=== PATIENT | male | born 1960 | race Caucasian/White ===

== ENCOUNTER 2023-11-08 12:03 | Emergency (ER) | payer OTHER ==
[~2023-11-08] VITALS: Ht 180.3 cm; Wt 95.3 kg
[2023-11-08 12:12] VITALS: BP 112/48; PULSE 66; RESP 16; TEMP 98.8; O2SAT 98
[2023-11-08 13:14] LABS: ANION GAP 9.3 (8-16); CALCIUM 7.7 mg/dL (8.5-10.1); CARBON DIOXIDE 26.3 mmol/L (21-32); CREATININE 0.8 mg/dL (0.6-1.3); POTASSIUM 3.6 mmol/L (3.5-5.1)
[2023-11-08 13:22] LABS: ALANINE AMINOTRANSFERASE 24 U/L (12-78); ALBUMIN 1.7 g/dL (3.4-5.0); ALKALINE PHOSPHATASE 254 U/L (50-136); ASPARTATE AMINOTRANSFERASE 47 U/L (15-37); BILIRUBIN,DIRECT 1.8 mg/dL (0.0-0.3); LIPASE 19 U/L (16-77); TOTAL BILIRUBIN 2.8 mg/dL (0.0-1.0); TOTAL PROTEIN, SERUM 5.6 g/dL (6.4-8.2)
[2023-11-08 13:36] LABS: BASOPHILS % (AUTO) 0.3 % (0.0-2.0); EOSINOPHILS % (AUTO) 1.8 % (0.0-4.0); HEMATOCRIT 21.6 % (36-52); LYMPHOCYTES # (AUTO) 0.3 K/uL (2.0-11.5); LYMPHOCYTES % (AUTO) 11.9 % (20.5-51.1); MEAN CORPUSCULAR HEMOGLOBIN 31 pg (27-31); MEAN CORPUSCULAR HGB CONC 33 g/dL (33-37); MEAN CORPUSCULAR VOLUME 93.5 fL (80-94); MONOCYTES # (AUTO) 0.4 K/uL (0.8-1.0); NEUTROPHILS # (AUTO) 1.8 K/uL (1.8-7.7); RED BLOOD CELL COUNT(AUTO) 2.31 MIL/uL (4.20-6.10); RED CELL DISTRIBUTION WIDTH 21.7 % (11.6-13.7); WHITE BLOOD COUNT (AUTO) 2.6 K/uL (4.8-10.8)
[2023-11-08 13:55] LABS: PLATELET COUNT (AUTO) 69 K/uL (140-450)
[2023-11-08 13:58] LABS: HEMOGLOBIN 7.1 g/dL (12.0-18.0)
[2023-11-08 15:06] VITALS: BP 116/49; PULSE 65; RESP 15; TEMP 98.8; O2SAT 99
== END 2023-11-08 15:04 | disposition home or self-care (01) ==
LOC: MED 12:03
DX: I86.8 Varicose veins of other specified sites (principal); R60.0 Localized edema; E11.9 Type 2 diabetes mellitus without complications; Z86.73 Personal history of transient ischemic attack (TIA), and cerebral infarction without residual deficits; Z96.649 Presence of unspecified artificial hip joint
CPT/HCPCS: 36415; 71045; 74176; 80048; 80076; 83690; 83880; 84484; 85025; 99284; Q0092